=== PATIENT | male | born 1995 | race American Indian/Alaskan Native ===

== ENCOUNTER 2018-06-08 10:09 | Emergency (ER) | payer SELFPAY ==
[2018-06-08 10:38] VITALS: BP 118/68
--- NOTE | 2018-06-08 15:10 | Emergency Department Report ---
ED ENT HPI - General Chief complaint: Dental/Oral Stated complaint: TOOTH ACHE/ABSCESS Time Seen by Provider: 06/08/18 14:07 Source: patient Mode of arrival: Ambulatory Limitations: No Limitations - History of Present Illness Initial comments: This is a 22-year-old -[place] male presents with toothache to right lower side and right-sided facial swelling for 2-3 weeks. Patient states facial swelling started yesterday but toothache for 6 months. Patient has been taking Motrin 800 with no improvement in symptoms. Denies sore throat, difficulty swallowing, tongue swelling, chest pain, and fever. MD complaint: tooth pain Onset/Timin -: week(s) Location: tooth # (32) Severity: severe Severity scale (0 -10): 10 Quality: sharp, constant Consistency: constant Improves with: none Worsens with: eating Context- Dental: history of dental caries, poor dental care Associated Symptoms: gum swelling, toothache. denies: fever, cough, pain with swallowing, sore throat, tinnitus, hearing loss, discharge from ear, rhinorrhea - Related Data Previous Rx's Medication Instructions Recorded Last Taken Type Amoxicillin 500 mg PO BID 10 Days #20 capsule 06/08/18 Unknown Rx Naproxen [Naprosyn] 500 mg PO BID PRN #15 tablet 06/08/18 Unknown Rx traMADol [Ultram 50 MG tab] 50 mg PO Q6HR PRN #15 tablet 06/08/18 Unknown Rx Allergies Allergy/AdvReac Type Severity Reaction Status Date / Time No Known Allergies Allergy Unverified 06/08/18 10:36 ED Dental HPI - General Chief complaint: Dental/Oral Stated complaint: TOOTH ACHE/ABSCESS Time Seen by Provider: 06/08/18 14:07 Source: patient Mode of arrival: Ambulatory Limitations: No Limitations - Related Data Previous Rx's Medication Instructions Recorded Last Taken Type Amoxicillin 500 mg PO BID 10 Days #20 capsule 06/08/18 Unknown Rx Naproxen [Naprosyn] 500 mg PO BID PRN #15 tablet 06/08/18 Unknown Rx traMADol [Ultram 50 MG tab] 50 mg PO Q6HR PRN #15 tablet 06/08/18 Unknown Rx Allergies Allergy/AdvReac Type Severity Reaction Status Date / Time No Known Allergies Allergy Unverified 06/08/18 10:36 ED Review of Systems ROS: Stated complaint: TOOTH ACHE/ABSCESS Other details as noted in HPI Constitutional: denies: chills, fever ENT: dental pain (right lower side). denies: ear pain, throat pain, hearing loss, epistaxis, congestion Respiratory: denies: cough, shortness of breath, wheezing Cardiovascular: denies: chest pain, palpitations Gastrointestinal: denies: abdominal pain, nausea, diarrhea Skin: other (lungs facial swelling). denies: rash, lesions Neurological: headache. denies: weakness, numbness, paresthesias Psychiatric: denies: anxiety, depression ED Past Medical Hx - Past Medical History Previous Medical History?: No - Surgical History Past Surgical History?: No - Medications Home Medications: Home Medications Medication Instructions Recorded Confirmed Last Taken Type Amoxicillin 500 mg PO BID 10 Days #20 capsule 06/08/18 Unknown Rx Naproxen [Naprosyn] 500 mg PO BID PRN #15 tablet 06/08/18 Unknown Rx traMADol [Ultram 50 MG tab] 50 mg PO Q6HR PRN #15 tablet 06/08/18 Unknown Rx ED Physical Exam - General Limitations: No Limitations General appearance: alert, in no apparent distress - ENT ENT exam: Present: mucous membranes moist, other (dental caries #32, surrounding mucosal swelling, tenderness) - Respiratory Respiratory exam: Present: normal lung sounds bilaterally. Absent: respiratory distress - Cardiovascular Cardiovascular Exam: Present: regular rate, normal rhythm. Absent: systolic murmur, diastolic murmur, rubs, gallop - GI/Abdominal GI/Abdominal exam: Present: soft, normal bowel sounds. Absent: organomegaly, mass - Neurological Exam Neurological exam: Present: alert, oriented X3, normal gait - Psychiatric Psychiatric exam: Present: normal affect, normal mood - Skin Skin exam: Present: warm, dry, intact, normal color. Absent: rash ED Course Vital Signs 06/08/18 10:36 Temperature 98.4 F Pulse Rate 75 Respiratory 16 Rate Blood Pressure 118/68 O2 Sat by Pulse 99 Oximetry ED Medical Decision Making - Medical Decision Making This is a 22-year-old male that presents with toothache and right side facial swelling for 3 days. Patient is stable and was examined by me. Given tramadol once in ER. Susceptible of dental caries. Discussed plan with patient. He agreed with ER plan. Discharged home with amoxicillin, naproxen, and tramadol. Follow up with dentist in 2-3 days. Critical care attestation.: If time is entered above; I have spent that time in minutes in the direct care of this critically ill patient, excluding procedure time. ED Disposition Clinical Impression: Dental caries, Toothache Disposition: TO HOME OR SELFCARE Is pt being admited?: No Does the pt Need Aspirin: No Condition: Stable Instructions: Dental Caries (ED), Toothache (ED) Additional Instructions: Complete all days of clindamycin as prescribed for 14 days. Follow up with Dentist in 24-72 hours. Prescriptions: Amoxicillin 500 mg PO BID 10 Days #20 capsule Naproxen [Naprosyn] 500 mg PO BID PRN #15 tablet PRN Reason: Pain, Moderate (4-6) traMADol [Ultram 50 MG tab] 50 mg PO Q6HR PRN #15 tablet PRN Reason: Pain Referrals: [facility] [Outside] - 3-5 Days [facility] [Outside] - 3-5 Days [facility] [Outside] - 3-5 Days [facility] [Outside] - 3-5 Days Forms: Work/School Release Form(ED) Time of Disposition: 15:10 Print Language: YI
== END 2018-06-08 15:35 | disposition home or self-care (01) ==
LOC: ED 10:09
DX: K02.9 Dental caries, unspecified (principal)
CPT/HCPCS: 99282

== ENCOUNTER 2020-05-21 14:05 | Emergency (ER) | payer OTHER ==
[2020-05-21] MEDS ORDERED: DIPHtheria,PERTUSSIS(ACELL),TETANUS VACCINE/PF 0.5 ML VIAL IM ONE (14:24)
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
--- NOTE | 2020-05-21 14:53 | XRay Report ---
LEFT FOREARM 2 VIEWS INDICATION / CLINICAL INFORMATION: left forearm lac r/o foreign body COMPARISON: None available. FINDINGS: BONES / JOINT(S): No acute fracture or subluxation. No significant arthritis. SOFT TISSUES: There is a soft tissue laceration along the posterior aspect of the forearm. Aside from bandaging material, no radiopaque foreign bodies are seen. ADDITIONAL FINDINGS: None. Signer Name: Tariq Magdaleno MD Signed: 05/21/2020 2:48 PM Workstation Name: [id number]
[2020-05-21 15:00] VITALS: BP 112/70
== END 2020-05-21 16:10 ==
LOC: ED 14:05
DX: S51.812A Laceration without foreign body of left forearm, initial encounter (principal); Z79.2 Long term (current) use of antibiotics; Z79.899 Other long term (current) drug therapy; V49.49XA Driver injured in collision with other motor vehicles in traffic accident, initial encounter; Y93.89 Activity, other specified; Y92.410 Unspecified street and highway as the place of occurrence of the external cause; Y99.8 Other external cause status
CPT/HCPCS: 90715